=== PATIENT | female | born 1945 | race Caucasian/White ===

== ENCOUNTER 2017-12-27 06:43 | Outpatient (CLI) | payer MEDICARE, OTHER, BC ==
[~2017-12-27] VITALS: Ht 172.7 cm; Wt 53.9 kg
[2017-12-27 08:32] VITALS: BP 101/51; PULSE 68; TEMP 97.6
[2017-12-27] MEDS ORDERED: RESTASIS MULTI5.5 ML OP (08:35)
[2017-12-27] MEDS ORDERED: OSCAL 500 TAB500 MG PO (08:37)
[2017-12-27] MEDS ORDERED: THERATEARS 0.60.6 ML OP (08:38)
[2017-12-27] MEDS ORDERED: VITAMIN D31000 I1 PO (08:38)
[2017-12-27 09:44] VITALS: BP 101/54; PULSE 64; TEMP 97.5
[2017-12-27 09:59] VITALS: BP 102/53; PULSE 62; TEMP 97.5
[2017-12-27 10:02] VITALS: BP 101/54; PULSE 67
[2017-12-27 10:05] LABS: HEMATOCRIT 39.6 % (37.0-47.0); HEMOGLOBIN 12.4 g/dl (12.5-16.0); MEAN CELL VOLUME 100 fl (80.0-100.0); MEAN CORPUSCULAR HEMOGLOBIN 31 pg (27.0-31.0); MEAN CORPUSCULAR HGB CONC 31 g/dl (33.0-37.0); MEAN PLATELET VOLUME 12.1 fl (7.4-10.4); PLATELET COUNT 86 K/mm3 (130-400); RED BLOOD COUNT 3.97 M/mm3 (4.10-5.30); REDCELL DISTRIBUTION WIDTH-CV 14.3 % (11.5-14.5)
[2017-12-27 11:08] LABS: LYMPHOCYTE 53 % (20.0-51.0); NEUTROPHILS 3 % (42.0-75.2)
[2017-12-27 11:09] LABS: PLATELET ESTIMATE NORMAL (NORMAL)
== END 2017-12-27 10:22 | disposition home or self-care (01) ==
LOC: COL.CAR 06:43 → SDCO 07:00 → COL.CAR 10:22
PROVIDERS: Pathology Anatomic Pathology & Clinical Pathology
DX: C91.10 Chronic lymphocytic leukemia of B-cell type not having achieved remission (principal); Q93.5 Other deletions of part of a chromosome; M85.80 Other specified disorders of bone density and structure, unspecified site; D64.9 Anemia, unspecified; Z14.8 Genetic carrier of other disease; Z85.72 Personal history of non-Hodgkin lymphomas
CPT/HCPCS: J2704; J7120